=== PATIENT | male | born 1950 | race Caucasian/White ===

== ENCOUNTER → 2023-02-11 | Outpatient (CLI) | payer MEDICARE, BC ==
--- NOTE | 2023-02-11 12:16 | MR ---
EXAMINATION TYPE: MR lumbar spine wo con DATE OF EXAM: 02/11/2023 COMPARISON: NONE HISTORY: Back pain TECHNIQUE: T1 and T2 axial and sagittal images of the lumbar spine are submitted. FINDINGS: There is no abnormal signal seen within the visualized spinal cord or paraspinal soft tissu es. At L1-2 there is there is hypertrophic degenerative changes spine. Broad-based disc bulging with mild thecal sac and mild status. Mild bilateral foraminal approach. Borderline central stenosis. At L2-3 there is mild disc desiccation with no evidence of focal herniation or canal stenosis. Hypert rophic changes of facets. At L3-4 there is degenerative disc disease and broad bulging. There is bilateral advanced facet arthr opathy. There is a moderate compression of the thecal sac and canal stenosis. Greater lateral delphine tory of the thecal sac on the right secondary to facet changes. There is moderate to severe right-paty ed and moderate left foraminal At L4-5 there is advanced facet arthropathy with broad-based disc herniation and ligamentum flavum hy pertrophy. Severe canal stenosis and bilateral foraminal encroachment. Severe encroachment on the rig ht and moderate to severe on the left. Grade 1 anterolisthesis L4-5. At L5-S1 there is severe degenerative disc disease with discogenic marrow changes and advanced facet arthropathy. There is moderate bilateral foraminal encroachment. No significant canal stenosis. IMPRESSION: 1. Multilevel degenerative disc disease, disc bulging and advanced facet arthropathy with grade 1 ant erior listhesis L4-L5. 2. Severe canal stenosis L4-5 and bilateral foraminal encroachment. 3. Moderate canal stenosis L3-4. Bilateral foraminal encroachment.
== END | disposition home or self-care (01) ==
LOC: RADMRIMAIN 08:31
PROVIDERS: ATTEND Physical Medicine & Rehabilitation
DX: M47.816 Spondylosis without myelopathy or radiculopathy, lumbar region (principal); M51.36 Other intervertebral disc degeneration, lumbar region; M43.16 Spondylolisthesis, lumbar region; M48.061 Spinal stenosis, lumbar region without neurogenic claudication; M47.817 Spondylosis without myelopathy or radiculopathy, lumbosacral region; M51.37 Other intervertebral disc degeneration, lumbosacral region; E11.9 Type 2 diabetes mellitus without complications
CPT/HCPCS: 72148